=== PATIENT | male | born 1945 | race Caucasian/White ===

== ENCOUNTER → 2017-07-05 | Outpatient (CLI) | payer OTHER ==
--- NOTE | 2017-07-05 15:43 | DIREP ---
PROCEDURE:US ANKLE BRACHIAL INDEX COMPARISON:None. INDICATIONS:LEG SWELLING AND PAIN, HX TOBACCO USE TECHNIQUE:A color duplex Doppler ultrasound examination of the bilateral lower extremities was performed. Color image and bidirectional spectral Doppler wave form analysis, and peak systolic flow measurements of the posterior tibial and dorsalis pedis arteries were performed. FINDINGS: RIGHT LOWER EXTREMITY: ORALIA DP: 0.9 PT: 1.2 POSTERIOR TIBIAL:75.7 cm/sBiphasic DORSALIS PEDIS:52.5 cm/sBiphasic LEFT LOWER EXTREMITY: ORALIA DP: 1.1 PT: 1.2 POSTERIOR TIBIAL:67.8 cm/sBiphasic DORSALIS PEDIS:74.7 cm/sBiphasic CONCLUSION:ORALIA within normal limits bilaterally ABIs greater than 1.4 indicate noncompressible vessels, likely to have significant peripheral vascular disease (PVD). ABIs of 0.91 to 1.3 indicate no significant obstructive disease. ABIs of 0.41 to 0.90 indicate grade I claudication. ABIs less than 0.4 indicate limb-threatening ischemia of grade I or grade II. Dictated by: FABIO Physician on 07/05/2017 at 03:21 PM ld
== END | disposition home or self-care (01) ==
LOC: RAD 13:46
DX: I70.213 Atherosclerosis of native arteries of extremities with intermittent claudication, bilateral legs (principal); I99.8 Other disorder of circulatory system; Z72.0 Tobacco use
CPT/HCPCS: 93922